=== PATIENT | female | born 1945 | race African-American/Black ===

== ENCOUNTER 2020-01-20 01:31 | Inpatient (IN) | payer MEDICARE ==
[~2020-01-20] VITALS: Ht 157.5 cm; Wt 44.9 kg
--- NOTE | 2020-01-20 01:50 | NUR ---
PT AAOX3. BIBPA FOR [facility] ADMISSION, NEEDS COVID SWAB. PLACED IN BED 7 ON MONITOR AND PULSE OX. VSS. NO ACUTE DISTRESS NOTED.
[2020-01-20] MEDS ORDERED: LORA-259 PO (01:56)
[2020-01-20] MEDS ORDERED: BENA20TA9 PO (01:56)
[2020-01-20] MEDS ORDERED: OLAN10TA3 PO (01:56)
--- NOTE | 2020-01-20 02:38 | NUR ---
COVID SWAB: NEGATIVE
--- NOTE | 2020-01-20 03:13 | NUR ---
REPORT GIVEN TO NAEEM VELASQUEZ FOR TIMMY
--- NOTE | 2020-01-20 03:15 | NUR ---
GPS ADMISSION NOTE: RECEIVED PT. FROM [facility] ARRIVED ON THIS UNIT AT 0312 WITH STAFF. ADMITTED ON A 5150 HOLD FOR DTS & GD. PER HOLD, PT. WAS BROUGHT FROM HOME FOR AGGRESSIVE BEHAVIOR, AGITATION, NOT EATING OR DRINKING, UNABLE TO TAKE CARE OF SELF. THE DOCUMENTATION IN HOLD APPEARS TO REFLECT THE PRESENTATION OF PATIENT. UPON FACE TO FACE ASSESSMENT, PT. NOTED DISHEVELED, DISORIENTED, CONFUSED, AND NEEDS REDIRECTION. PT. IS CURRENTLY SLEEPING IN BED. NO C/O OF PAIN OR DISTRESS. BREATHING UNLABORED WITH EQUAL RISE AND FALL OF CHEST. A/O X1 ON ROOM AIR. NO NEEDS AT THIS TIME. DENIES SI/HI. UNABLE TO SIGN PAPERWORK. PT. ADVISED ON HOLD. UNDER PSYCH CARE OF DR. MEADOWS AND MEDICAL CARE OF CYNDI. BELONGINGS WERE INVENTORIED AND CHECKED FOR CONTRABAND. SKIN ASSESSMENT COMPLETED. 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 SIDE RAILS UP X2 FOR SAFETY, BED LOCKED, LOW. WILL CONTINUE TO MONITOR FOR SAFETY AND BEHAVIOR.
[2020-01-20 03:37] VITALS: BP 155/86
[2020-01-20] MEDS ORDERED: TEMAZEPAM 7.5 MG CAPSULE PO PRN (04:30)
[2020-01-20] MEDS ORDERED: MAGNESIUM HYDROXIDE 30 ML UDC PO PRN (04:30)
[2020-01-20] MEDS ORDERED: MAG HYDROX/AL HYDROX/SIMETH 30 ML UDC PO PRN (04:30)
[2020-01-20] MEDS ORDERED: ACETAMINOPHEN 325 MG TABLET PO PRN (04:30)
[2020-01-20] MEDS ORDERED: BLOOD SUGAR DIAGNOSTIC 1 EACH STRIP IN ONE (04:30)
[2020-01-20] MEDS ORDERED: RISP1TAB27 PO (06:10)
[2020-01-20] MEDS ORDERED: LISI10TA5 PO (06:10)
[2020-01-20] MEDS ORDERED: DONE5TAB34 PO (06:11)
[2020-01-20] MEDS ORDERED: ALEN70TA6 PO (06:13)
[2020-01-20] MEDS ORDERED: ATOR10TA PO (06:15)
[2020-01-20] MEDS ORDERED: CLON0.1T PO (06:20)
[2020-01-20] MEDS ORDERED: METO25TA20 PO (06:20)
[2020-01-20 06:44] LABS: BASOPHILS % (AUTO) 0.6 % (0.0-2.0); EOSINOPHILS % (AUTO) 0.9 % (0.0-6.0); HEMATOCRIT 32 % (33-45); HEMOGLOBIN 10.7 g/dL (11.5-14.8); LYMPHOCYTES # (AUTO) 1.4 /CMM (0.8-4.8); LYMPHOCYTES % (AUTO) 23.3 % (20.0-44.0); MEAN CORPUSCULAR HGB CONC 33 g/dl (31.0-36.0); MEAN CORPUSCULAR VOLUME 92 fL (82-100); MONOCYTES # (AUTO) 0.4 /CMM (0.1-1.30); MONOCYTES % (AUTO) 6.6 % (2.0-12.0); NEUTROPHILS # (AUTO) 4.1 /CMM (1.8-8.9); NEUTROPHILS % (AUTO) 68.6 % (43.0-81.0); PLATELET COUNT (AUTO) 208 /CMM (150-450); RED BLOOD CELL COUNT(AUTO) 3.48 MIL/uL (4.0-5.2)
[2020-01-20 07:13] LABS: ALBUMIN 3.2 g/dL (3.4-5.0); BILIRUBIN,TOTAL 1.2 mg/dL (0.2-1.0); CALCIUM, SERUM 8.7 mg/dL (8.5-10.1); CREATININE 0.8 mg/dL (0.6-1.3); POTASSIUM 3.7 mmol/L (3.5-5.1)
[2020-01-20] MEDS ORDERED: DEXTROSE 50%-WATER 50 ML DISP.SYRIN IV PRN (07:30)
[2020-01-20] MEDS: BLOOD SUGAR DIAGNOSTIC 1 EACH STRIP IN SCH ×4 (07:55→22:14)
[2020-01-20 08:00] VITALS: BP 150/85
[2020-01-20] MEDS: ENSURE ENLIVE CHOC 237 ML CAN PO SCH ×2 (08:00→16:05)
--- NOTE | 2020-01-20 10:56 | NUR ---
FAMILY CONTACT: SW contacted pts sister Vonnie ([phone]) and left a voicemail for call back to discuss treatment/discharge plan, and also receive collateral information.
--- NOTE | 2020-01-20 10:57 | NUR ---
SS COORDINATION OF CARE: SW contacted [facility] ([phone]) and spoke to RON Anderson in the ER who stated she does not have any additional information regarding pt and/or family contact other than pts sister's phone number which is in the chart.
--- NOTE | 2020-01-20 12:25 | NUR ---
GPS RN NOTE: PATIENT ATE 50 % LUNCH, KATHE FISHER NOTIFIED TO RECONCILE HOME MEDICATIONS. CONTINUE MONITORING
--- NOTE | 2020-01-20 13:18 | NUR ---
FAMILY CONTACT: SW contacted pts sister Vonnie ([phone]) and left a voicemail for call back to discuss treatment/discharge plan, and also receive collateral information.
[2020-01-20 16:00] VITALS: BP 100/59
[2020-01-20] MEDS: CLONIDINE HCL 0.1 MG TABLET PO SCH (16:05)
[2020-01-20 20:11] VITALS: BP 90/54
--- NOTE | 2020-01-20 22:16 | NUR ---
GPS RN NOTE PTS BLOOD SUGAR WAS Addendum: 01/20/20 at 2217 by VETO OSORIO RN PT BLOOD SUGAR WAS 110, NO COVERAGE NEEDED PER SLIDING SCALE
[2020-01-20] MEDS: RIVASTIGMINE TARTRATE 1.5 MG CAPSULE PO SCH (22:30)
--- NOTE | 2020-01-20 23:16 | NUR ---
GPS RN NOTE RECEIVED PT CALM, COOPERATIVE, SUSPICIOUS, GUARDED, QUIET. SHIFT CONTINUED PT BECAME RESTLESS, LABILE MOOD, AGGRESSIVE, SCREAMING AT STAFF AND DISRUPTIVE. AFTER BEING ABLE TO CALM PT DOWN, SHE IS NOW IN BED, HYPERVERBAL, TALKING TO SELF. WILL CONTINUE TO MONITOR Q15 MIN FOR SAFETY AND BEHAVIOR AND MONITOR ANY BEHAVIORAL CHANGES.
[2020-01-21 06:59] LABS: CHOLESTEROL 200 mg/dL (<200); HDL CHOLESTEROL 63 mg/dL (40-60); LDL 130 mg/dL (0-99); TRIGLYCERIDES 41 mg/dL (30-150)
[2020-01-21] MEDS: BLOOD SUGAR DIAGNOSTIC 1 EACH STRIP IN SCH ×4 (07:30→22:25)
--- NOTE | 2020-01-21 07:44 | NUR ---
RN NOTES REFUSED BS CHECKED AT THIS TIME, PATIENT IS AGITATED AND WANTS TO BE LEFT ALONE, WILL CONTINUE TO MONITOR.
[2020-01-21 08:30] VITALS: BP 116/64
[2020-01-21] MEDS: HALOPERIDOL 1 MG TABLET PO SCH ×3 (09:00→17:00)
[2020-01-21] MEDS: CLONIDINE HCL 0.1 MG TABLET PO SCH ×2 (09:00→17:00)
[2020-01-21] MEDS: ATORVASTATIN 10 MG TABLET PO SCH (09:00)
[2020-01-21] MEDS: VALPROIC ACID 250 MG/5 ML UDC GT SCH ×2 (09:00→21:00)
[2020-01-21] MEDS: METOPROLOL TARTRATE 25 MG TABLET PO SCH (09:00)
[2020-01-21] MEDS: LISINOPRIL (10MG) 10 MG TABLET PO SCH (09:00)
[2020-01-21] MEDS: RIVASTIGMINE TARTRATE 1.5 MG CAPSULE PO SCH ×2 (09:00→21:00)
[2020-01-21] MEDS: ENSURE ENLIVE CHOC 237 ML CAN PO SCH ×2 (09:02→17:00)
--- NOTE | 2020-01-21 10:02 | NUR ---
FAMILY CONTACT: SW contacted pts sister Vonnie ([phone]) and left a voicemail for call back to discuss treatment/discharge plan, and also receive collateral information.
--- NOTE | 2020-01-21 10:05 | NUR ---
WOUND CARE CONSULT : SEEN PATIENT AT BEDSIDE,PATIENT PRESENTS FUNGAL RIGHT GREAT TOE NAIL, NO S\S INFECTION NOTED AT THIS TIME ,PRESENT ON ADMISSION, ,CURRENT CLAUDIA SCORE IS 16, RECOMMENDATION MADE FOR SKIN PROTECTION WILL MONITOR CLOSELY FOR ANY CHANGES AND DISCOMFORT , DISCUSSED WITH NURSING STAFF, IN AGREEMENT WITH PLAN OF CARE , WILL SEE PRN Addendum: 01/21/20 at 1012 by BIBI MATOS RN Amended: Links added.
--- NOTE | 2020-01-21 11:11 | NUR ---
INITIAL DISCHARGE PLAN: Pt needs placement and will be referred to a SNF. SW will help form a safe and proper discharge in collaboration with .
[2020-01-21 16:00] VITALS: BP 95/56
--- NOTE | 2020-01-21 17:24 | NUR ---
RN NOTES PATIENT REFUSED ALL MEDICATION FOR AM SHIFT, REFUSED BS CHECKED TOO, PATIENT JUST WANTS TO BE LEFT ALONE ON HER ROOM. MD MADE AWARE AND WILL CONTINUE TO MONITOR.
--- NOTE | 2020-01-21 19:30 | NUR ---
GPS RN NOTE RECEIVED PT IN HER ROOM, SUSPICIOUS, GUARDED, UNCOOPERTIVE RESTLESS, LABILE MOOD, AGGRESSIVE, SCREAMING AT STAFF AND DISRUPTIVE, HYPERVERBAL, TALKING TO SELF. PT.SLAMING HER ROOM DOOR. NEEDS FREQUETNYL REDIRECTION , BUT PT.NOT FOLLOWING ANY REDIRECTIONS , WILL CONTINUE TO MONITOR Q15 MIN FOR SAFETY AND BEHAVIOR.
[2020-01-21 19:43] VITALS: BP 134/78
[2020-01-21 21:30] VITALS: BP 130/76
--- NOTE | 2020-01-21 22:00 | NUR ---
RN NOTES : REFUSED MEDS PT. REFUSED NIGHT SCHEDULE MEDS DEPAKENE SYP , EXELON 1.5 MG , ENCOURAGED X3 PT. STRONGLY REFUSE , PER PT. I DON'T WANT TAKE ANY MEDS , AND GET OUT OF MY ROOM ,DR. MEADOWS ON THE UNIT AND NOTIFED DR. MEADOWS ,PT. BEHAVIOR AND REFUSED MEDS , WILL CONTINUITY WITH CARE
--- NOTE | 2020-01-21 22:02 | NUR ---
RN NOTES : REFUSED MEDS PT. REFUSED NIGHT SCHEDULE MEDS DEPAKENE SYP , EXELON 1.5 MG , ENCOURAGED X3 PT. STRONGLY REFUSE , PER PT. I DON'T WANT TAKE ANY MEDS , AND GET OUT OF MY ROOM ,DR. MEADOWS ON THE UNIT AND NOTIFED OF PT. BEHAVIOR AND REFUSED MEDS, AND RISED PETITION FORM SIGNED BY ,WILL CONTINUITY WITH CARE.
--- NOTE | 2020-01-22 06:58 | NUR ---
GPS RN CLOSING NOTE PATIENT SLEPT WELL AT NIGHT. NO CHANGE OF CONDITION NOTED. NO ACUTE DISTRESS NOTED. WILL ENDORSE TO AM RN FOR CONTINUITY OF CARE.
[2020-01-22] MEDS: BLOOD SUGAR DIAGNOSTIC 1 EACH STRIP IN SCH ×4 (07:45→22:04)
[2020-01-22] MEDS: ENSURE ENLIVE CHOC 237 ML CAN PO SCH ×2 (07:48→17:33)
[2020-01-22 08:00] VITALS: BP 99/60
[2020-01-22] MEDS: CLONIDINE HCL 0.1 MG TABLET PO SCH ×2 (08:28→17:00)
[2020-01-22] MEDS: VALPROIC ACID 250 MG/5 ML UDC GT SCH ×2 (08:28→21:00)
[2020-01-22] MEDS: RIVASTIGMINE TARTRATE 1.5 MG CAPSULE PO SCH ×2 (08:29→21:00)
[2020-01-22] MEDS: METOPROLOL TARTRATE 25 MG TABLET PO SCH (08:29)
[2020-01-22] MEDS: ATORVASTATIN 10 MG TABLET PO SCH (08:29)
[2020-01-22] MEDS: HALOPERIDOL 1 MG TABLET PO SCH ×3 (08:29→17:00)
[2020-01-22] MEDS: LISINOPRIL (10MG) 10 MG TABLET PO SCH (08:30)
--- NOTE | 2020-01-22 08:30 | NUR ---
RN NOTE: MEDICATION REFUSAL PT REFUSED ALL AM MEDICATIONS. EDUCATED PT REGARDING IMPORTANCE OF MEDICATION COMPLIANCE. PT CONTINUED TO REFUSE X 3. PT VERBALLY AGGRESSIVE AT PRESENT TIME.
[2020-01-22 16:00] VITALS: BP 108/63
--- NOTE | 2020-01-22 19:45 | NUR ---
GPS RN NOTE PT. BEHAVIOUR UNCOOPERATIVE , SUSPICIOUS, GUARDED, UNCOOPERTIVE RESTLESS, LABILE MOOD, AGGRESSIVE, SCREAMING AT STAFF AND DISRUPTIVE, HYPERVERBAL, TALKING TO SELF. NEEDS FREQUETNYL REDIRECTION , BUT PT.NOT FOLLOWING ANY REDIRECTIONS , OFFERD WILL CONTINUE TO MONITOR Q15 MIN FOR SAFETY AND BEHAVIOR.
[2020-01-22 20:26] VITALS: BP 103/63
--- NOTE | 2020-01-22 21:30 | NUR ---
RN NOTES : REFUSED MEDS PT. REFUSED NIGHT SCHEDULE MEDS DEPAKENE SYP , EXELON 1.5 MG , ENCOURAGED X3 , EXPLINED RISKS AND BENEFITS STILL REFUSED , PT. STRONGLY REFUSE , PER PT. I DON'T WANT TAKE ANY MEDS, MADE AWARE , WILL CONTINUITY WITH CARE.
[2020-01-22] MEDS: INSULIN REGULAR, HUMAN 100 UNIT/ML 3 ML VIAL SQ PRN (22:42)
--- NOTE | 2020-01-22 23:58 | NUR ---
GPS RN NOTE PT. BEHAVIOUR UNCOOPERATIVE , SUSPICIOUS, GUARDED, UNCOOPERTIVE , AGGRESSIVE, SCREAMING AT STAFF AND DISRUPTIVE, HYPERVERBAL, TALKING TO SELF. NEEDS FREQUETNYL REDIRECTION , BUT PT.NOT FOLLOWING ANY REDIRECTIONS , OFFERD RESTORIL SLEEPING PILLS, BUT PT. REFUSED TO TAKE, WILL CONTINUE TO MONITOR Q15 MIN FOR SAFETY AND BEHAVIOR.
[2020-01-23] MEDS: BLOOD SUGAR DIAGNOSTIC 1 EACH STRIP IN SCH ×4 (07:30→22:00)
[2020-01-23 08:00] VITALS: BP 157/88
--- NOTE | 2020-01-23 08:00 | NUR ---
GPS NOTE THE PATIENT REFUSED 0730 BLOOD SUGAR CHECK DESPITE EXPLAINING RISKS AND BENEFITS MULTIPLE TIMES.
[2020-01-23] MEDS: ENSURE ENLIVE CHOC 237 ML CAN PO SCH ×2 (08:24→17:00)
[2020-01-23] MEDS: VALPROIC ACID 250 MG/5 ML UDC GT SCH ×2 (08:24→21:00)
[2020-01-23] MEDS: ATORVASTATIN 10 MG TABLET PO SCH (08:25)
[2020-01-23] MEDS: RIVASTIGMINE TARTRATE 1.5 MG CAPSULE PO SCH ×2 (08:26→21:00)
[2020-01-23] MEDS: CLONIDINE HCL 0.1 MG TABLET PO SCH ×2 (08:26→16:26)
[2020-01-23] MEDS: LISINOPRIL (10MG) 10 MG TABLET PO SCH (08:27)
[2020-01-23] MEDS: HALOPERIDOL 1 MG TABLET PO SCH ×3 (08:27→16:26)
[2020-01-23] MEDS: METOPROLOL TARTRATE 25 MG TABLET PO SCH (08:27)
[2020-01-23] MEDS: INSULIN REGULAR, HUMAN 100 UNIT/ML 3 ML VIAL SQ PRN ×3 (08:28→18:15)
[2020-01-23 10:05] VITALS: BP 136/84
[2020-01-23 15:52] VITALS: BP 101/64
--- NOTE | 2020-01-23 22:10 | NUR ---
RN NOTES : REFUSED MEDS PT. REFUSED NIGHT SCHEDULE MEDS DEPAKENE SYP , EXELON 1.5 MG , ACCU CHECK / BLOOD SUGAR CHECK, ENCOURAGED X3 , EXPLINED RISKS AND BENEFITS STILL REFUSED , PT. STRONGLY REFUSE , PER PT. I DON'T WANT TAKE ANY MEDS AND CHECK BLOOD SUGAR, PER PT. MY BLOOD SUGAR IS FINE , WILL CONTINUITY WITH CARE.
[2020-01-24 03:25] VITALS: BP 113/72
--- NOTE | 2020-01-24 07:10 | NUR ---
GPS RN OPENING NOTES RECEIVED PT RESTING IN BED AT THIS TIME. AOX1. NO SOB NOTED, SO C/O PAIN AT THIS TIME, NO S/S OF ANY ACUTE DISTRESS NOTED. RESPIRATIONS EVEN AND UNLABORED ON RA WITH EQUAL RISE AND FALL IN CHEST. PERIODS OF FORGETFULNESS NOTED, HYPERVERBAL, PARANOID, CONFUSED, SUSPICIOUS, GUARDED, ANXIOUS, FLAT AFFECT. PT IS DISHEVELED, UNKEPT, PT DENIES SI/HI/ AVH. PT TALKS TO SELF SOMETIMES. PT IS NON COMPLAINT WITH MEDICATION ADMINISTRATION. SAFETY MAINTAIN AT ALL TIMES. BED IN LOWEST LOCKED POSITION, SIDE RAILS UPX2, CALL LIGHT WITHIN REACH. WILL CONTINUE TO MONITOR Q15M, PRN AND PER PROTOCOL FOR SAFETY AND BEHAVIOR.
[2020-01-24] MEDS: BLOOD SUGAR DIAGNOSTIC 1 EACH STRIP IN SCH ×4 (07:47→21:32)
[2020-01-24 08:00] VITALS: BP 96/50
[2020-01-24] MEDS: ENSURE ENLIVE CHOC 237 ML CAN PO SCH ×2 (08:47→16:31)
[2020-01-24] MEDS: HALOPERIDOL 1 MG TABLET PO SCH ×3 (09:00→17:00)
[2020-01-24] MEDS: LISINOPRIL (10MG) 10 MG TABLET PO SCH (09:00)
[2020-01-24] MEDS: CLONIDINE HCL 0.1 MG TABLET PO SCH ×2 (09:00→17:00)
[2020-01-24] MEDS: VALPROIC ACID 250 MG/5 ML UDC GT SCH ×2 (09:00→21:00)
[2020-01-24] MEDS: RIVASTIGMINE TARTRATE 1.5 MG CAPSULE PO SCH ×2 (09:00→21:00)
[2020-01-24] MEDS: METOPROLOL TARTRATE 25 MG TABLET PO SCH (09:00)
[2020-01-24] MEDS: ATORVASTATIN 10 MG TABLET PO SCH (09:00)
--- NOTE | 2020-01-24 10:35 | NUR ---
PATIENT REFUSED ALL 0900AM MEDICATIONS. BENEFITS AND RISK EXPLAINED. PT VERBALIZED UNDERSTANDING. MEDICATIONS RETURNED. WILL CONTINUE TO MONITOR
--- NOTE | 2020-01-24 12:03 | NUR ---
BS 128, PT REFUSED COVERAGE. BENEFITS AND RISK EXPLAINED. PT STILL REFUSED. PT STATED " I WONT TAKE INSULIN". DOCTOR PHILLIP MADE AWARE. NO NEW ORDERS. WILL CONTINUE TO MONITOR Addendum: 01/24/20 at 1746 by AMELIA CHIANG RN BS 128. NO INSULIN COVERAGE NEEDED AT THIS TIME PER SLIDING SCALE. WILL CONTINUE TO MONITOR
--- NOTE | 2020-01-24 13:25 | NUR ---
PT REFUSED HALDOL 0.5MG PO TID AT THIS TIME. BENEFITS AND RISK EXPLAINED. PT STILL REFUSED. DOCTOR FISHER MADE AWARE. AWAITING ORDERS, WILL CONTINUE TO MONITOR Addendum: 01/24/20 at 1330 by AMELIA CHIANG RN PT REFUSED HALDOL 0.5MG PO TID AT THIS TIME. BENEFITS AND RISK EXPLAINED. PT STILL REFUSED. MEDICATION RETURNED. DOCTOR FISHER MADE AWARE. AWAITING ORDERS, WILL CONTINUE TO MONITOR
[2020-01-24 16:00] VITALS: BP 124/74
--- NOTE | 2020-01-24 17:43 | NUR ---
BS 145, PT REFUSED INSULIN COVERAGE. BENEFITS AND RISK EXPLAINED.DOCTOR FISHER MADE AWARE. NO NEW ORDERS. WILL CONTINUE TO MONITOR
--- NOTE | 2020-01-24 17:47 | NUR ---
PT REFUSED HALDOL 0.5MG PO TID AND CATAPRES 0.1MG PO BID AT THIS TIME. BENEFITS AND RISK EXPLAINED. PT STILL REFUSED STATING "I DONT NEED ANY MEDICATIONS". MEDICATION RETURNED. DOCTOR PHILLIP AWARE. NO NEW ORDERS, WILL CONTINUE TO MONITOR
--- NOTE | 2020-01-24 19:05 | NUR ---
GPS RN CLOSING NOTES PT RESTING IN BED AT THIS TIME. PT REMAINED STABLE THROUGHOUT SHIFT. ALL CARE, NEEDS, TREATMENT AND MEDICATIONS ADMINISTERED ANTICIPATED PER ORDER. PT KEPT CLEAN AND DRY.SAFETY MAINTAIN AT ALL TIMES. BED IN LOWEST LOCKED POSITION, SIDE RAILS UPX2, CALL LIGHT WITHIN REACH. WILL ENDORSE TO TAVERN KEEPER NURSE FOR TIMMY
[2020-01-24 19:40] VITALS: BP 113/73
--- NOTE | 2020-01-24 21:05 | NUR ---
GPS RN NOTES: REFUSED PM MEDS PT REFUSED DEPAKENE AND EXELON DUE AT 2100. PT INCREASED AGITATION. EXPLAIN RISKS AND BENEFITS. PT STILL REFUSED X3. CONTINUE TO MONITO .
[2020-01-24] MEDS: INSULIN REGULAR, HUMAN 100 UNIT/ML 3 ML VIAL SQ PRN (21:33)
--- NOTE | 2020-01-25 07:31 | NUR ---
RN NOTE: PT REFUSED AM ACCUCHECK PT REFUSED 0730 ACCUCHECK. "GOD DAMN BLOOD SUGAR. GO BLOOD SUGAR HOE". PT SWAT AT NURSE AND CONTINUED PROFANITIES "I DON'T GIVE A DAMN. GOD DAMN BLOOD SUGAR". ATTEMPTED TO EDUCATE PT REGARDING IMPORTANCE OF BLOOD GLUCOSE MONITORING. PT HAS H/O STABLE BLOOD GLUCOSE LEVELS
[2020-01-25] MEDS: BLOOD SUGAR DIAGNOSTIC 1 EACH STRIP IN SCH ×4 (07:33→21:19)
[2020-01-25 08:00] VITALS: BP 129/75
[2020-01-25] MEDS: ENSURE ENLIVE CHOC 237 ML CAN PO SCH ×2 (08:09→17:03)
[2020-01-25] MEDS: LISINOPRIL (10MG) 10 MG TABLET PO SCH (09:00)
[2020-01-25] MEDS: RIVASTIGMINE TARTRATE 1.5 MG CAPSULE PO SCH ×2 (09:00→21:00)
[2020-01-25] MEDS: HALOPERIDOL 1 MG TABLET PO SCH ×3 (09:00→17:00)
[2020-01-25] MEDS: METOPROLOL TARTRATE 25 MG TABLET PO SCH (09:00)
[2020-01-25] MEDS: VALPROIC ACID 250 MG/5 ML UDC GT SCH ×2 (09:00→21:00)
[2020-01-25] MEDS: ATORVASTATIN 10 MG TABLET PO SCH (09:00)
[2020-01-25] MEDS: CLONIDINE HCL 0.1 MG TABLET PO SCH ×2 (09:19→17:00)
--- NOTE | 2020-01-25 09:21 | NUR ---
RN NOTE: MEDICATION REFUSAL PT REFUSED ALL AM 0900 MEDICATIONS. ATTEMPTED TO EDUCATE PT REGARDING IMPORTANCE OF MEDICATION COMPLIANCE. PT CONTINUED TO REFUSE X3. PT YELLING "I'LL SLIT YOUR THROAT".
[2020-01-25 16:00] VITALS: BP 124/79
[2020-01-25 20:04] VITALS: BP 117/72
[2020-01-25 20:11] VITALS: BP 107/70
[2020-01-25] MEDS: INSULIN REGULAR, HUMAN 100 UNIT/ML 3 ML VIAL SQ PRN (21:19)
--- NOTE | 2020-01-25 21:20 | NUR ---
GPS RN NOTES: REFUSED PM MEDS AND ACCU CHECK PT REFUSED DEPAKENE AND EXELON DUE AT 2100. PT ALSO REFUSED ACCU CHECK. PT INCREASED AGITATION. EXPLAIN RISKS AND BENEFITS. PT STILL REFUSED X3. CONTINUE TO MONITOR .
[2020-01-26] MEDS: BLOOD SUGAR DIAGNOSTIC 1 EACH STRIP IN SCH ×4 (07:30→21:45)
[2020-01-26 08:00] VITALS: BP 109/73
[2020-01-26] MEDS: ENSURE ENLIVE CHOC 237 ML CAN PO SCH ×2 (08:00→17:00)
[2020-01-26] MEDS: CLONIDINE HCL 0.1 MG TABLET PO SCH ×2 (09:00→17:00)
[2020-01-26] MEDS: RIVASTIGMINE TARTRATE 1.5 MG CAPSULE PO SCH ×2 (09:00→21:00)
[2020-01-26] MEDS: VALPROIC ACID 250 MG/5 ML UDC GT SCH ×2 (09:00→21:00)
[2020-01-26] MEDS: ATORVASTATIN 10 MG TABLET PO SCH (09:00)
[2020-01-26] MEDS: HALOPERIDOL 1 MG TABLET PO SCH ×2 (09:00→17:00)
[2020-01-26] MEDS: METOPROLOL TARTRATE 25 MG TABLET PO SCH (09:00)
[2020-01-26] MEDS: LISINOPRIL (10MG) 10 MG TABLET PO SCH (09:00)
[2020-01-26] MEDS: HALOPERIDOL LACTATE INJ 5 MG/ML VIAL IM SCH ×2 (09:09→17:34)
[2020-01-26 16:00] VITALS: BP 102/59
[2020-01-26 19:58] VITALS: BP 102/55
--- NOTE | 2020-01-26 21:46 | NUR ---
GPS-RN NOTE: MEDICATION REFUSAL PATIENT REFUSED PM MEDS DEPNAFISAE, EXELON, BLOOD SUGAR CHECK. EDUCATED PATIENT REGARDING IMPORTANCE OF MEDICATION COMPLIANCE. PATIENT CONTINUED TO REFUSE X3. PATIENT STATED "NO, I DON'T WANT TO TAKE IT". GET OUT OF HERE. REISED FILED ON 01/25/20.
[2020-01-27] MEDS: BLOOD SUGAR DIAGNOSTIC 1 EACH STRIP IN SCH ×4 (07:30→22:00)
[2020-01-27 08:00] VITALS: BP 119/86
[2020-01-27] MEDS: ENSURE ENLIVE CHOC 237 ML CAN PO SCH ×2 (08:00→17:00)
[2020-01-27] MEDS: RIVASTIGMINE TARTRATE 1.5 MG CAPSULE PO SCH ×2 (09:00→21:00)
[2020-01-27] MEDS: ATORVASTATIN 10 MG TABLET PO SCH (09:00)
[2020-01-27] MEDS: VALPROIC ACID 250 MG/5 ML UDC GT SCH ×2 (09:00→21:00)
[2020-01-27] MEDS: METOPROLOL TARTRATE 25 MG TABLET PO SCH (09:00)
[2020-01-27] MEDS: HALOPERIDOL 1 MG TABLET PO SCH ×3 (09:00→17:00)
[2020-01-27] MEDS: CLONIDINE HCL 0.1 MG TABLET PO SCH ×2 (09:00→17:00)
[2020-01-27] MEDS: LISINOPRIL (10MG) 10 MG TABLET PO SCH (09:00)
[2020-01-27] MEDS ORDERED: DIATR MEGLU/DIATRIZOATE SODIUM 120 ML BOTTLE (GASTROGRAPHIN) ONE ×2 (09:24→10:21)
[2020-01-27] MEDS ORDERED: BARIUM SULFATE 98% 135 ML SUSP.RECON PO ONE (09:24)
[2020-01-27] MEDS: HALOPERIDOL LACTATE INJ 5 MG/ML VIAL IM PRN ×3 (10:01→17:53)
[2020-01-27 16:00] VITALS: BP 129/86
[2020-01-27 19:38] VITALS: BP 112/70
--- NOTE | 2020-01-27 22:30 | NUR ---
GPS RN NOTE: MEDICATION REFUSAL PT REFUSED BOTH 2100 MEDICATION (DEPAKENE & EXELON) AND 2200 ACCUCHECK. PT WAS AGITATED AND CALMED DOWN ONCE STAFF STEPPED OUT OF ROOM, WILL CONTINUE TO MONITOR Q15 MIN FOR SAFETY AND BEHAVIOR.
[2020-01-28] MEDS: BLOOD SUGAR DIAGNOSTIC 1 EACH STRIP IN SCH ×4 (07:30→21:24)
[2020-01-28 08:00] VITALS: BP 103/65
[2020-01-28] MEDS: VALPROIC ACID 250 MG/5 ML UDC GT SCH ×2 (08:21→21:00)
[2020-01-28] MEDS: ENSURE ENLIVE CHOC 237 ML CAN PO SCH ×2 (08:21→17:31)
[2020-01-28] MEDS: CLONIDINE HCL 0.1 MG TABLET PO SCH ×3 (08:21→17:31)
[2020-01-28] MEDS: RIVASTIGMINE TARTRATE 1.5 MG CAPSULE PO SCH ×2 (08:22→21:00)
[2020-01-28] MEDS: LISINOPRIL (10MG) 10 MG TABLET PO SCH (08:22)
[2020-01-28] MEDS: METOPROLOL TARTRATE 25 MG TABLET PO SCH (08:22)
[2020-01-28] MEDS: ATORVASTATIN 10 MG TABLET PO SCH (08:22)
[2020-01-28] MEDS: HALOPERIDOL 1 MG TABLET PO SCH ×3 (08:22→17:00)
[2020-01-28] MEDS: HALOPERIDOL LACTATE INJ 5 MG/ML VIAL IM PRN ×3 (08:52→17:32)
--- NOTE | 2020-01-28 08:55 | NUR ---
rn notes administered Haldol lactate 1 mg/ml im on right deltoid area per refusal of scheduled medication. patient on riese.
--- NOTE | 2020-01-28 12:36 | NUR ---
RN NOTES ADMINISTERED HALDOL LACTATE 1 MG /ML IM ON OUTER GLUTEAL AREA , PER REFUSAL OF PO SCHEDULED MEDICATION.
[2020-01-28 16:00] VITALS: BP 97/55
--- NOTE | 2020-01-28 17:33 | NUR ---
rn notes patient refused po Haldol preferred Haldol lactate 1mg/ml im, on right outer gluteal area. refused Catapres 0.1 mg po .
[2020-01-28 20:25] VITALS: BP 144/99
--- NOTE | 2020-01-28 21:43 | NUR ---
GPS RN NOTE: MEDICATION REFUSAL PT. REFUSED SCHEDULED 2100 MEDICATIONS, DEPAKENE SYP 250 MG AND EXELON 1.5 MG. ALSO REFUSED 2200 ACCU CHECK. PT. STATES " I DON'T WANT THEM AND I DON'T HAVE BLOOD SUGAR CHECKS." EXPLAINED RISKS AND BENEFITS. OFFERED 3X. PT STILL REFUSED. WILL CONTINUE TO MONITOR FOR SAFETY AND BEHAVIOR.
[2020-01-29] MEDS: BLOOD SUGAR DIAGNOSTIC 1 EACH STRIP IN SCH ×4 (07:30→21:13)
[2020-01-29 08:00] VITALS: BP 91/56
[2020-01-29] MEDS: VALPROIC ACID 250 MG/5 ML UDC GT SCH ×2 (08:32→21:00)
[2020-01-29] MEDS: CLONIDINE HCL 0.1 MG TABLET PO SCH ×2 (08:32→17:00)
[2020-01-29] MEDS: LISINOPRIL (10MG) 10 MG TABLET PO SCH (08:33)
[2020-01-29] MEDS: RIVASTIGMINE TARTRATE 1.5 MG CAPSULE PO SCH ×2 (08:33→21:00)
[2020-01-29] MEDS: METOPROLOL TARTRATE 25 MG TABLET PO SCH (08:33)
[2020-01-29] MEDS: ATORVASTATIN 10 MG TABLET PO SCH (08:33)
[2020-01-29] MEDS: HALOPERIDOL 1 MG TABLET PO SCH ×3 (08:33→17:00)
[2020-01-29] MEDS: HALOPERIDOL LACTATE INJ 5 MG/ML VIAL IM PRN ×3 (08:34→17:23)
[2020-01-29] MEDS: ENSURE ENLIVE CHOC 237 ML CAN PO SCH ×2 (08:34→17:21)
--- NOTE | 2020-01-29 09:00 | NUR ---
GPS/RN PT REFUSED AM MEDS AND ACCUCHECK. OFFERED X3. HALDOL IM GIVEN PER MD ORDER
[2020-01-29 16:00] VITALS: BP 91/60
[2020-01-29 20:00] VITALS: BP 120/74
--- NOTE | 2020-01-29 21:15 | NUR ---
GPS RN NOTE: MEDICATION REFUSAL PT. REFUSED SCHEDULED 2100 MEDICATIONS, DEPAKENE SYP 250 MG AND EXELON 1.5 MG. ALSO REFUSED 2200 ACCU CHECK. PT. STATES " I DON'T WANT ANYTHING." EXPLAINED RISKS AND BENEFITS. OFFERED 3X. PT STILL REFUSED. WILL CONTINUE TO MONITOR FOR SAFETY AND BEHAVIOR.
[2020-01-30] MEDS: BLOOD SUGAR DIAGNOSTIC 1 EACH STRIP IN SCH ×4 (07:30→21:47)
[2020-01-30] MEDS: CLONIDINE HCL 0.1 MG TABLET PO SCH ×2 (07:54→17:00)
[2020-01-30] MEDS: ENSURE ENLIVE CHOC 237 ML CAN PO SCH ×2 (07:54→17:19)
[2020-01-30] MEDS: RIVASTIGMINE TARTRATE 1.5 MG CAPSULE PO SCH ×2 (07:54→21:00)
[2020-01-30] MEDS: VALPROIC ACID 250 MG/5 ML UDC GT SCH ×2 (07:54→21:00)
[2020-01-30] MEDS: METOPROLOL TARTRATE 25 MG TABLET PO SCH (07:55)
[2020-01-30] MEDS: ATORVASTATIN 10 MG TABLET PO SCH (07:55)
[2020-01-30] MEDS: LISINOPRIL (10MG) 10 MG TABLET PO SCH (07:55)
[2020-01-30] MEDS: HALOPERIDOL 1 MG TABLET PO SCH ×3 (07:55→17:00)
[2020-01-30] MEDS: HALOPERIDOL LACTATE INJ 5 MG/ML VIAL IM PRN ×3 (07:56→17:20)
[2020-01-30 08:00] VITALS: BP 105/68
[2020-01-30 16:00] VITALS: BP 116/69
[2020-01-30 20:34] VITALS: BP 110/65
[2020-01-31] MEDS: BLOOD SUGAR DIAGNOSTIC 1 EACH STRIP IN SCH ×4 (07:30→22:00)
[2020-01-31 08:00] VITALS: BP 140/73
[2020-01-31] MEDS: ENSURE ENLIVE CHOC 237 ML CAN PO SCH ×2 (08:59→17:48)
[2020-01-31] MEDS: METOPROLOL TARTRATE 25 MG TABLET PO SCH (09:00)
[2020-01-31] MEDS: CLONIDINE HCL 0.1 MG TABLET PO SCH ×2 (09:00→17:00)
[2020-01-31] MEDS: HALOPERIDOL 1 MG TABLET PO SCH ×3 (09:00→17:00)
[2020-01-31] MEDS: RIVASTIGMINE TARTRATE 1.5 MG CAPSULE PO SCH ×2 (09:00→21:00)
[2020-01-31] MEDS: LISINOPRIL (10MG) 10 MG TABLET PO SCH (09:00)
[2020-01-31] MEDS ORDERED: HALOPERIDOL DECANOATE IM 100 MG/ML AMPUL IM ONE (09:00)
[2020-01-31] MEDS: VALPROIC ACID 250 MG/5 ML UDC GT SCH ×2 (09:00→21:00)
[2020-01-31] MEDS: ATORVASTATIN 10 MG TABLET PO SCH (09:00)
[2020-01-31] MEDS: HALOPERIDOL LACTATE INJ 5 MG/ML VIAL IM PRN ×3 (09:13→17:50)
--- NOTE | 2020-01-31 09:30 | NUR ---
SNF REFERRAL: MIREYA faxed SNF referral to [facility] ([facility]) [address] [phone] for review.
--- NOTE | 2020-01-31 09:34 | NUR ---
SNF REFERRAL: SW faxed SNF referral to [facility] ([facility]) [address] [place] [address] P: [phone] for review.
--- NOTE | 2020-01-31 09:45 | NUR ---
FAMILY CONTACT: MIREYA contacted pts sister Vonnie ([phone]) and discussed pts current behaviors and progress. MIREYA informed pts sister that pt is REISED and continues to refuse all oral medication including her medical medications. SW states that pt received a long active Haldol Dec injection this morning on top of her daily antipsychotic medication. Sister states that prior to being hospitalized pt was living at home alone and states that pt has no other family other than her sister who is older than her and is unable to care for her. MIREYA informed her that pt will be discharged to a SNF once stable and sister agreed. Sister requested pt be placed near [place] or [facility]. SW will continue to coordinate D/C with sister as needed.
--- NOTE | 2020-01-31 11:20 | NUR ---
SNF CONTACT: SW received a call from Tunde, sales development coordinator at [facility] [place] ([facility]) [address] [place] [address] P: [phone] stating pt has been denied due to her behavior and non-compliance with medication.
--- NOTE | 2020-01-31 11:35 | NUR ---
SNF CONTACT: SW received a call from [employer] admissions representative at [facility] ([facility]) [address] [address] stating pt has been accepted to the facility and will need a COVID test upon admission.
[2020-01-31 16:00] VITALS: BP 99/79
[2020-01-31 20:33] VITALS: BP 105/63
--- NOTE | 2020-01-31 22:07 | NUR ---
GPS RN NOTE: MEDICATION REFUSAL PT. REFUSED SCHEDULED 2100 MEDICATIONS, DEPAKENE SYP 250 MG AND EXELON 1.5 MG. ALSO REFUSED 2200 ACCU CHECK. PER PT. STATES " MY BLOOD SUGAR IS FINE ,I DON'T HAVE BLOOD SUGAR CHECKS." EXPLAINED RISKS AND BENEFITS. OFFERED 3X. PT STILL REFUSED. WILL CONTINUE TO MONITOR FOR SAFETY AND BEHAVIOR.
--- NOTE | 2020-01-31 23:05 | NUR ---
RN NOTES : DR. MEADOWS IN THE UNIT , PT. SEEN BY DR. MEADOWS.
--- NOTE | 2020-02-01 06:31 | NUR ---
RN NOTES: PT. RESTING IN HER ROOM , NO ACUTE DISTRESS/ CHANGES NOTED, ALL NEEDS ANTICIPATED, WILL CONTINUITY WITH CARE.
[2020-02-01 08:00] VITALS: BP 117/79
[2020-02-01] MEDS: BLOOD SUGAR DIAGNOSTIC 1 EACH STRIP IN SCH ×4 (08:43→21:55)
[2020-02-01] MEDS: ENSURE ENLIVE CHOC 237 ML CAN PO SCH ×2 (08:43→17:18)
[2020-02-01] MEDS: RIVASTIGMINE TARTRATE 1.5 MG CAPSULE PO SCH ×3 (09:00→21:00)
[2020-02-01] MEDS: CLONIDINE HCL 0.1 MG TABLET PO SCH ×2 (09:00→17:00)
[2020-02-01] MEDS: ATORVASTATIN 10 MG TABLET PO SCH ×2 (09:00→10:16)
[2020-02-01] MEDS: METOPROLOL TARTRATE 25 MG TABLET PO SCH (09:00)
[2020-02-01] MEDS: VALPROIC ACID 250 MG/5 ML UDC GT SCH ×3 (09:00→21:00)
[2020-02-01] MEDS: LISINOPRIL (10MG) 10 MG TABLET PO SCH (09:00)
[2020-02-01] MEDS: HALOPERIDOL 1 MG TABLET PO SCH ×3 (10:16→17:12)
--- NOTE | 2020-02-01 11:50 | NUR ---
refused am accu-check and noon accu-check as well.
[2020-02-01 16:00] VITALS: BP 102/58
--- NOTE | 2020-02-01 16:50 | NUR ---
refused blood sugar check.
[2020-02-01 20:10] VITALS: BP 99/58
--- NOTE | 2020-02-01 21:42 | NUR ---
GPS RN NOTE: REFUSED 2100 MEDS PATIENT REFUSED TO TAKE DEPAKENE SYP & EXELON SCHEDULED AT 2100, STATED," I DON'T TAKE THIS MEDICINE, I ONLY TAKE HALDOL." PATIENT KEPT REPEATING," I DON'T TAKE IT, I DON'T TAKE IT DESPITE OF RISKS & BENEFITS EXPLANATIONS. PATIENT IS RELAXED 7 CALM AT THIS TIME. WILL CONTINUE TO MONITOR FOR ANY CHANGES.
--- NOTE | 2020-02-01 22:50 | NUR ---
GPS RN NOTE PATIENT SEEN BY DR. MEADOWS WITH NO NEW ORDERS AT THIS TIME.
--- NOTE | 2020-02-02 02:13 | NUR ---
GPS RN NOTE PATIENT IS AWAKE AT THIS TIME BUT QUIET & RELAXED. OFFERED RESTORIL ORDERED, BUT PATIENT STRONGLY REFUSED TO TAKE SLEEPING MEDICINE, EASILY AGITATED WHEN ENCOURAGED. WILL CONTINUE TO MONITOR FOR SAFETY, MOOD & BEHAVIOR.
[2020-02-02] MEDS: BLOOD SUGAR DIAGNOSTIC 1 EACH STRIP IN SCH ×4 (07:30→21:24)
[2020-02-02 08:00] VITALS: BP 122/76
[2020-02-02] MEDS: ATORVASTATIN 10 MG TABLET PO SCH ×2 (09:00→09:46)
[2020-02-02] MEDS: VALPROIC ACID 250 MG/5 ML UDC GT SCH ×3 (09:00→20:41)
[2020-02-02] MEDS: RIVASTIGMINE TARTRATE 1.5 MG CAPSULE PO SCH ×3 (09:00→20:41)
[2020-02-02] MEDS: LISINOPRIL (10MG) 10 MG TABLET PO SCH (09:00)
[2020-02-02] MEDS: METOPROLOL TARTRATE 25 MG TABLET PO SCH ×2 (09:00→09:46)
[2020-02-02] MEDS: ENSURE ENLIVE CHOC 237 ML CAN PO SCH ×2 (09:39→17:33)
[2020-02-02] MEDS: HALOPERIDOL 1 MG TABLET PO SCH ×3 (09:46→17:38)
[2020-02-02 16:00] VITALS: BP 100/65
--- NOTE | 2020-02-02 16:19 | NUR ---
isolative.keeps to self in rm.pleasant.
--- NOTE | 2020-02-02 18:36 | NUR ---
dr. hernandez aware refusing everything but haldol.orders given.
[2020-02-02 20:05] VITALS: BP 100/63
--- NOTE | 2020-02-02 20:41 | NUR ---
GPS RN NOTES: REFUSED PM MEDS PT REFUSED DEPAKENE AND EXELON DUE AT 2100. PT INCREASED AGITATION. EXPLAIN RISKS AND BENEFITS. PT STILL REFUSED X3. CONTINUE TO MONITOR .
[2020-02-02] MEDS: INSULIN REGULAR, HUMAN 100 UNIT/ML 3 ML VIAL SQ PRN (21:25)
[2020-02-03] MEDS: BLOOD SUGAR DIAGNOSTIC 1 EACH STRIP IN SCH ×2 (07:31→11:56)
[2020-02-03 08:00] VITALS: BP 112/66
[2020-02-03] MEDS: ENSURE ENLIVE CHOC 237 ML CAN PO SCH ×2 (08:34→17:11)
[2020-02-03] MEDS: HALOPERIDOL 1 MG TABLET PO SCH ×3 (08:35→16:22)
[2020-02-03] MEDS: VALPROIC ACID 250 MG/5 ML UDC GT SCH (09:00)
[2020-02-03] MEDS: ATORVASTATIN 10 MG TABLET PO SCH (09:00)
[2020-02-03] MEDS: RIVASTIGMINE TARTRATE 1.5 MG CAPSULE PO SCH (09:00)
[2020-02-03] MEDS: LISINOPRIL (10MG) 10 MG TABLET PO SCH (09:00)
[2020-02-03] MEDS: METOPROLOL TARTRATE 25 MG TABLET PO SCH (09:00)
--- NOTE | 2020-02-03 11:33 | NUR ---
FAMILY CONTACT: MIREYA contacted pts sister Vonnie ([phone]) and informed her pt will be discharged tomorrow Friday02/04/20 to [facility]) [address] [address] . Sister agreed with discharge.
[2020-02-03 16:00] VITALS: BP 134/74
[2020-02-03 20:00] VITALS: BP 105/67
[2020-02-03 20:20] VITALS: BP 105/67
--- NOTE | 2020-02-04 06:35 | NUR ---
GPS RN NOTE PATIENT SLEPT WELL AT NIGHT. NO CHANGES NOTED.
[2020-02-04 08:00] VITALS: BP 126/84
[2020-02-04] MEDS: ATORVASTATIN 10 MG TABLET PO SCH (08:25)
[2020-02-04] MEDS: METOPROLOL TARTRATE 25 MG TABLET PO SCH (08:25)
[2020-02-04] MEDS: ENSURE ENLIVE CHOC 237 ML CAN PO SCH (08:25)
[2020-02-04] MEDS: HALOPERIDOL 1 MG TABLET PO SCH ×2 (08:25→13:20)
[2020-02-04 08:26] VITALS: BP 126/84
[2020-02-04] MEDS: LISINOPRIL (10MG) 10 MG TABLET PO SCH (08:26)
--- NOTE | 2020-02-04 12:10 | NUR ---
DISCHARGE NOTE: Pt will be discharging 1:00pm via [facility] to [facility] ([facility]) [address] [address] . Pts sister Vonnie ([phone]) has been notified via voicemail. Pts mood is labile with congruent affect. Pt is alert and oriented x1, to self and is appropriately dressed and groomed. Pt responds to auditory hallucinations at baseline and denies visual hallucinations. Pt denies suicidal/homicidal ideation. Pt will be under the care of psychiatrist: Dr. Gertrude Eckert [address] [address] and Assembling Motor Builder: Dr. Artemio Martin [address] [phone] . The multidisciplinary exit care form was done, printed, signed, and given to the patient.
--- NOTE | 2020-02-04 12:14 | NUR ---
Dr. Randolph gave an order to D/C hold and [facility], to continue same meds including prn and to follow up with psych and medical doctors. Meenakshi Donaldson NP made aware of the discharge continue same meds including prn.
--- NOTE | 2020-02-04 15:15 | NUR ---
GPS/RN PT D/C to [facility].REPORT GIVEN TO PURVI VELASQUEZ. NO SI OR HI AT THE TIME OF D/C. VSS. PROPERTY RETURNED. EXIT CARE INSTRUCTIONS, H&P, LABS RESULTS AND MEDS LIST GIVEN TO AMBULANCE.PT REFUSED PICTURES ON DISCHARGE.
== END 2020-02-04 15:10 | DRG 885 ==
LOC: ER 01:31 → GPS 02:58
PROVIDERS: ADMIT Psychiatry & Neurology Psychiatry; ATTEND Nurse Practitioner Acute Care
DX: F29 Unspecified psychosis not due to a substance or known physiological condition (principal); E44.1 Mild protein-calorie malnutrition; Z68.1 Body mass index [BMI] 19.9 or less, adult; F41.9 Anxiety disorder, unspecified; D64.9 Anemia, unspecified; F39 Unspecified mood [affective] disorder; F03.90 Unspecified dementia, unspecified severity, without behavioral disturbance, psychotic disturbance, mood disturbance, and anxiety; M81.0 Age-related osteoporosis without current pathological fracture; E80.6 Other disorders of bilirubin metabolism; I10 Essential (primary) hypertension; Z91.19 Patient's noncompliance with other medical treatment and regimen; M62.50 Muscle wasting and atrophy, not elsewhere classified, unspecified site; E88.09 Other disorders of plasma-protein metabolism, not elsewhere classified; F25.0 Schizoaffective disorder, bipolar type
CPT/HCPCS: 36415; 80053-TC; 80061-TC; 82962-TC; 85025-TC; 87081-TC; 97116-TC; 97530-TC; J1630; J1631; J1815; Q9963